=== PATIENT | male | born 1985 | race Caucasian/White ===

== ENCOUNTER 2023-01-22 12:13 | Outpatient (CLI) | payer OTHER ==
--- NOTE | 2023-01-22 16:34 | MRI Report ---
PROCEDURE: KNEE WO - RT INDICATIONS: INJURY TO RIGHT LOWER LEG TECHNIQUE: Noncontrast sagittal PD fast spin echo and T2 fast spin echo with fat saturation, sagittal 3-D gradie nt sequence with fat saturation; coronal T1 spin echo and PD fast spin echo with fat saturation, and axial PD fast spin echo with fat saturation through the knee. COMPARISON: None. FINDINGS: Image quality: Excellent. Menisci: The medial and lateral menisci demonstrate normal morphology and internal signal. The meni scal root ligaments appear intact. Cruciate ligaments: There is moderate attenuation of the anterior cruciate ligament which demonstrate s mild posterior bowing. Posterior cruciate ligament is intact. Medial structures: The medial collateral ligament appears intact. Visualized portions of the pes ans erinus tendons appear normal. No abnormal bursal fluid. Lateral structures: The lateral collateral ligament, long and short heads of the biceps femoris tend on appear intact. The popliteus tendon appears normal. There is moderate T2 signal elevation within the popliteus. Iliotibial band appears normal. Anterior structures: The quadriceps and patellar tendons appear intact. Patellar alignment is baljinder l. No femoral trochlear dysplasia or ventral trochlear prominence. No edema in the infrapatellar fa t pad. Bones and cartilage: There is mild, roughly 2 mm of depression of the anterior weightbearing aspect o f the lateral femoral condyle spanning roughly 15 mm anteroposterior. Mild ill-defined T2 signal elev ation within the mid weightbearing aspect of the medial femoral condyle. Mild ill-defined T2 signal e levation within the anterior weightbearing aspect of the lateral femoral condyle and the posterior we ightbearing aspect of the lateral tibial plateau. Joint space: There is a moderate knee joint effusion and a small Cotto's cyst. Normal appearing syn ovial plicae are incidentally noted. IMPRESSION: 1. Partial thickness anterior cruciate ligament tear. 2. Mildly depressed fracture of the lateral femoral condyle with underlying contusion. Contusion with in the lateral tibial plateau and medial femoral condyle. 3. Knee joint effusion and Cotto's cyst. 4. Moderate grade popliteus strain. Reviewed by: Dafne Cary MD on 01/22/2023 4:33 PM PDT Approved by: Dafne Cary MD on 01/22/2023 4:33 PM PDT Station ID: [id number]
== END 2023-01-22 12:14 | disposition home or self-care (01) ==
LOC: DI 12:13
PROVIDERS: ATTEND General Practice
DX: S83.511A Sprain of anterior cruciate ligament of right knee, initial encounter (principal); S72.421A Displaced fracture of lateral condyle of right femur, initial encounter for closed fracture; M25.461 Effusion, right knee; M71.21 Synovial cyst of popliteal space [Baker], right knee; S86.811A Strain of other muscle(s) and tendon(s) at lower leg level, right leg, initial encounter